=== PATIENT | male | born 1950 | race Caucasian/White ===

== ENCOUNTER → 2018-07-09 | Outpatient (REF) | LOC: M LAB LCGH 15:19 | PROVIDERS: ATTEND Surgery | DX: Z00.00 Encounter for general adult medical examination without abnormal findings (principal) ==

== ENCOUNTER → 2022-11-04 | Outpatient (CLI) | payer OTHER, MEDICARE | LOC: M WUC 10:59 | PROVIDERS: ATTEND Internal Medicine | DX: S20.212A Contusion of left front wall of thorax, initial encounter (principal); Y93.9 Activity, unspecified; Y92.9 Unspecified place or not applicable ==

== ENCOUNTER → 2022-12-13 | Outpatient (CLI) | payer MEDICARE, BC, OTHER | LOC: M RAD 07:16 | PROVIDERS: ATTEND Physician Assistant | DX: M79.604 Pain in right leg (principal) ==

== ENCOUNTER → 2023-09-21 | Outpatient (CLI) | payer MEDICARE, BC | LOC: M RAD 07:02 | PROVIDERS: ATTEND Internal Medicine | DX: F17.210 Nicotine dependence, cigarettes, uncomplicated (principal) ==